=== PATIENT | female | born 1980 | race Caucasian/White ===

== ENCOUNTER 2025-01-25 09:45 | Day surgery (SDC) | payer BC, SELFPAY ==
[2025-01-22 13:58] VITALS: BMI 21.0
--- NOTE | 2025-01-25 05:29 | EXP.HP ---
History of Present Illness *Admission Date: 01/25/25 *History of present illness: Mrs. Arreola is a 44-year-old female who is here for diagnostic panendoscopy. She has had some longstanding difficulties with alternating bowel function, gassiness and primarily bloating. The patient has some longstanding digestive difficulties. She does improve when she goes gluten-free. She does report alternating constipation with diarrhea and does have obstipation/incomplete bowel evacuation. She reports some nausea. She also has had some hoarseness and globus sensation. Sometimes her voice is a different pitch. She reports not feeling like she gets a good deep breath at times. She has been using MiraLAX which helps to improve symptoms in the morning but her bowel movements become pretty loose and she does report incomplete defecation. She states that in the mornings her abdomen is flat and becomes more and more distended as the day goes on. Her mother had advanced adenomatous colon polyps. She had a colonoscopy 7 years ago that was normal. She was given 5-year surveillance interval. She does get some abdominal crampy discomfort. She has never tried a low FODMAP diet but does improve with avoidance of gluten/wheat. The patient has never seen a dietitian. She has had no prior enzyme testing. She does feel that stress/anxiety may be playing a role. Her bloating symptoms were improved on Wellbutrin and when she came off of this she noticed that she was more symptomatic. She does take hormone pellets. [facility] Disclaimer: The information contained in this section may have been updated after the patient was seen, as this information can be updated by other users. Medical History History of COVID-19 Asthma Hoarseness of voice Chronic idiopathic constipation Surgical History Hx of hernia repair H/O bilateral breast reduction surgery History of placement of ear tubes History of hysterectomy History of cholecystectomy Family History Other Breast cancer Hyperlipidemia Hypertension Social History Smoking Status: Never smoker alcohol intake: never current occupational status: employed Travel in the last 8 weeks?: Inside the [place] caffeine: Yes Have you lived/traveled outside [place] in past 30 days?: No Contact w/someone who lives/traveled outside [place] past 30 days?: No Exposure to someone with infectious disease in past 14 days?: No Do you have a fever (greater than 100.4 F or 38 C)?: No Have you tested positive for COVID-19?: No Exposed to someone with COVID-19 in past 14 days?: No Do you have a sore throat?: No Do you have a cough?: No Do you have any weakness?: No Are you experiencing any nausea/vomitting?: No Do you have any diarrhea?: No Are you experiencing any unusual bleeding?: No Do you have any muscle aches/pain?: No Do you have any abdominal pain?: No Are you experiencing loss of taste or smell?: No Review of Systems Review of Systems Review of systems (narrative): Negative *Cardiovascular Comments: Negative *Gastrointestinal Comments: Negative *Genitourinary Comments: Negative *Musculoskeletal Comments: Negative *Neurologic Comments: Negative Meds Home Medications and Allergies Home Medications ?Medication ?Instructions ?Recorded ?Confirmed ?Type polyethylene glycol 3350 17 17 g PO DAILY 05/06/24 01/25/25 History gram/dose oral powder (Miralax) red beet 250 mg-sour rudd 1 tab PO DAILY 05/06/24 01/25/25 History extract 0.5 mg chewable tablet vitamin D3 125 mcg (5,000 1 cap PO DAILY 05/06/24 01/25/25 History unit)-vitamin K2 180 mcg capsule sodium,potassium,mag sulfates 17.5 See Rx Instructions PO .COMPLEX 01/15/25 01/25/25 Rx gram-3.13 gram-1.6 gram oral soln #354 mL (Suprep Bowel Prep Kit) New Prescriptions to Start Prescriptions: Allergies Allergy/AdvReac Type Severity Reaction Status Date / Time methimazole Allergy SWELLING Verified 01/25/25 10:40 Penicillins Allergy Hives Verified 01/25/25 10:40 promethazine Allergy Vomiting Verified 01/25/25 10:40 Exam Data for Last 24 hours I & O for Last 24 hours: Intake & Output 01/22/25 01/23/25 01/24/25 01/25/25 23:59 23:59 23:59 23:59 Weight 115 lb *Routine HEENT Exam Head: Present normocephalic Eye: Present EOMI and PERRL ENT: Present mucous membranes moist *Routine Neck Exam Neck: Present supple *Routine Respiratory Exam Respiratory: Present CTA bilaterally *Routine Cardiovascular Exam Cardiovascular: Present RRR *Routine Abdominal Exam Abdominal: Present soft and normoactive bowel sounds; Absent tenderness *Routine Rectal Exam Rectal:: deferred *Routine Genitalia Exam Genitalia:: deferred *Routine Extremities Exam Extremities: Absent cyanosis, clubbing or edema *Routine Skin Exam Skin: Present warm; Absent rash *Routine Neurological Exam Neurological: Present alert and oriented X3 Assessment and Plan *Assessment and plan (1) Globus sensation: Status: Acute Category: Medical Code(s): R09.A2 - Foreign body sensation, throat (2) Family history of adenomatous and serrated polyps: Status: Acute Category: Medical Code(s): Z83.710 - Family history of adenomatous and serrated polyps (3) Bloating: Status: Acute Category: Medical Code(s): R14.0 - Abdominal distension (gaseous) (4) Abdominal cramps: Status: Acute Category: Medical Code(s): R10.9 - Unspecified abdominal pain (5) Incomplete defecation: Status: Acute Category: Medical Code(s): R15.0 - Incomplete defecation (6) Chronic idiopathic constipation: Status: Acute Category: Medical Code(s): K59.04 - Chronic idiopathic constipation Plan A/P: 1. Globus and bloating for upper endoscopy and crampy abdominal discomfort with incomplete defecation and family history of adenomatous polyps for colonoscopy is the preprocedural diagnosis. The patient will be anesthetized/sedated using MAC sedation. The patient has been seen and examined. Cardiac and lung assessment prior to the examination is stable. Proceed with planned diagnostic EGD and colonoscopy.
[2025-01-25 10:37] VITALS: BP 103/75; PULSE 73; RESP 18; TEMP 36.2; O2SAT 100
[2025-01-25] MEDS: LACTATED RINGERS 1000ML 1,000 ML 50 ML IV (10:51)
--- NOTE | 2025-01-25 11:43 | HMH.PROCNOTE ---
[facility] Procedure Note Date: 01/25/25 Time: 11:52 Procedure Note:: Upper Endoscopy Procedure Report: Esophagogastroduodenoscopy with cold biopsies and TTS balloon dilation Endoscopost: Adalid Boss II, MD Referring Physician: Niels Contreras MD Date of Procedure: January 25, 2025 Equipment: Olympus [id number]-1100 standard upper endoscope Sedation: MAC sedation Indications: Mrs. Arreola is a 44-year-old female who is here for diagnostic upper endoscopy secondary to throat thickness, globus sensation and some more frequent clearance of the throat with some voice change. She does report a difference in her pitch and intermittent hoarseness. She had been on the hormone pellets. The patient has had some longstanding digestive issues which are primarily bloating but she does get some belching. She reports no heartburn or reflux. She does continue to have alternating constipation with diarrhea and incomplete bowel evacuation. The patient had seen ENT and had laryngoscopy and told that there were changes in the vocal cords related to reflux. She has gone on a gluten-free diet but continues to have symptoms. Procedure: Prior to the procedure, a history and physical exam was performed, and patient's medications and allergies were reviewed. The risks, benefits and alternatives of the sedation and procedure were discussed with the patient. All questions were answered and informed consent was obtained. The patient was brought to the procedure room. Patient identification and proposed procedure were verified by the physician and the nurse. The patient was placed in a left lateral decubitus position and the scope was passed under direct vision. Throughout the procedure, the patient's blood pressure, pulse, and oxygen saturations were monitored continuously. The upper GI endoscopy was accomplished without difficulty. The patient tolerated the procedure well. Findings: The scope was passed directly into the upper esophagus and advanced to the third and fourth portion of the duodenum. A cold biopsy was taken from the second portion of the duodenum for the disaccharidase assay. The post bulbar duodenum and duodenal bulb were normal with normal mucosa and conniventes. Cold biopsies were taken from the first portion of duodenum and duodenal bulb to rule out celiac disease. The scope was withdrawn through a normal duodenal bulb and pylorus into the stomach. There was moderate bile reflux with mild to moderate linear reactive gastropathy of the antrum and body of the stomach. The fundus of the stomach was normal. Upon retroflexion there was no hiatal hernia. Cold biopsies were taken from the antrum. The scope was then withdrawn into the esophagus. There was no evidence of reflux esophagitis or Wolf's. There were no rings, strictures, corrugation, furrowing or webs. There was a very small proximal esophageal inlet patch. The entire esophagus was dilated to 60 [place]/20 mm with a TTS hydrostatic balloon. There was some resistance at the cricopharyngeus (cricopharyngeal spasm). The remainder of the esophageal mucosa was normal. Impression: 1. Cricopharyngeal spasm status post dilation to 20 mm 2. Small proximal esophageal inlet patch 3. Nonerosive GERD with moderate esophageal dysmotility 4. Bile reflux with mild to moderate linear reactive gastropathy Plan: I will follow-up the biopsies and disaccharidase assay. The patient does have bile reflux with cricopharyngeal spasm causing her globus and throat tightness. Most of her symptoms of bloating and globus sensation are related to and driven by lower intestinal gas pressure gradients/high gas pressure buildup resulting in backflow of bile and peptic fluid from the duodenum into the stomach (duodenal reflux). This gas production (carbon dioxide, hydrogen, methane, etc.) from the lower intestinal tract is the byproduct of colonic bacterial fermentation. This colonic fermentation occurs when there is more carbohydrate (dietary starches, sugars and high residue plant fiber) substrate that does not get digested (in the middle or small intestine) or occurs when there is colonic fecal buildup and colonic bacterial overgrowth. This indeed leads to bloating and the gas pressure buildup with gas pressure gradients that do drive backflow. We will discuss treatment options. I will proceed with screening colonoscopy.
--- NOTE | 2025-01-25 11:55 | HMH.PROCNOTE ---
[facility] Procedure Note Date: 01/25/25 Time: 12:06 Procedure Note:: Colonoscopy Procedure Report: Colonoscopy with cold snare polypectomy Endoscopist: Adalid Boss II, MD Referring physician: Niels Contreras MD Date of Procedure: January 25, 2025 Equipment: Olympus [id number] adult colonoscope Sedation: MAC sedation Indication: Mrs. Arreola is a 44-year-old female who is here for follow-up screening/surveillance colonoscopy. The patient's mother did have advanced adenomatous colon polyps. The patient's last colonoscopy 7 years ago was normal. She does report alternating IBS with constipation alternating with diarrhea. She does get bloating. She will occasionally see mucus with her bowel movements but no blood. She reports no lower abdominal pain, rectal bleeding, weight loss or family history of colon cancer. Procedure: Prior to the procedure, a history and physical exam was performed, and patient's medications and allergies were reviewed. The risks, benefits and alternatives of the sedation and procedure were discussed with the patient. All questions were answered and informed consent was obtained. The patient was brought to the procedure room. Patient identification and proposed procedure were verified by the physician and the nurse. The patient was placed in a left lateral decubitus position and the scope was passed under direct vision. Throughout the procedure, the patient's blood pressure, pulse, and oxygen saturations were monitored continuously. The colonoscopy was accomplished without difficulty. The patient tolerated the procedure well. Findings: On digital rectal examination there was normal rectal tone. There were no external hemorrhoids. The colonoscope was introduced through the anal canal to the rectum and advanced to the cecum. The ileocecal valve and appendiceal orifice were identified. The scope was advanced a short distance into the ileum which appeared grossly normal. The scope was then withdrawn into the colon. There was a single 3 to 4 mm ascending colon polyp removed via cold snare polypectomy. The remaining cecum, ascending, transverse, descending, sigmoid and rectum were grossly normal. There were no other mucosal abnormalities identified. Upon retroflexion within the rectum there were grade 1-2 internal hemorrhoids. The preparation was excellent throughout with [place] Preparation Score of 9. The cecal time was 12 minutes. Impression: 1. Diminutive 3 to 4 mm ascending colon polyp Plan: I will follow-up the polyp histology and recommend repeat screening/surveillance colonoscopy again in 7 years if the polyp is adenomatous. The patient does have IBS and incomplete bowel evacuation. This results in increased fecal burden with increased colonic fermentation. We will discuss treatment options including prucalopride.
[2025-01-25 12:07] VITALS: BP 89/59; PULSE 76; RESP 16; O2SAT 98
[2025-01-25 12:17] VITALS: BP 99/58; PULSE 60; RESP 16; O2SAT 99
[2025-01-25 12:27] VITALS: BP 110/73; PULSE 67; RESP 18; O2SAT 99
[2025-01-25 12:33] VITALS: BP 104/71; PULSE 66; RESP 16; O2SAT 99
[2025-01-27 16:27] LABS: Interpretation Notes (.); Lactase 53.41 (>/= 14.0); Maltase 273.69 (>/= 110.0); Palatinase 16.41 (>/= 8.5); Reference Notes (.); Sucrase 65.62 (>/= 25.0)
== END 2025-01-25 12:36 | disposition home or self-care (01) ==
PROVIDERS: PCP Family Medicine; Visit Provider Internal Medicine Gastroenterology
PROC: 0DJ08ZZ Inspection of Upper Intestinal Tract, Via Natural or Artificial Opening Endoscopic (ICD-10-PCS; CPT 45378; principal; 2025-01-25 11:30)
DX: Z12.11 Encounter for screening for malignant neoplasm of colon (principal); K63.5 Polyp of colon; K21.9 Gastro-esophageal reflux disease without esophagitis; K31.9 Disease of stomach and duodenum, unspecified; K58.1 Irritable bowel syndrome with constipation; Z83.710 Family history of adenomatous and serrated polyps; J45.909 Unspecified asthma, uncomplicated; Z88.1 Allergy status to other antibiotic agents; Z88.5 Allergy status to narcotic agent; Z79.899 Other long term (current) drug therapy
CPT/HCPCS: 43239; 43249; 45385; 82657; C1726; J2003; J2704; J7120